=== PATIENT | female | born 1965 | race Two or more races ===

== ENCOUNTER 2019-06-07 20:08 | Emergency (ER) | payer MEDICAID ==
[~2019-06-07] VITALS: Ht 160 cm; Wt 74.4 kg
[2019-06-07] MEDS ORDERED: cefTRIAXone SOD 1,000 MG VL IM ONE (22:30)
[2019-06-07 23:05] VITALS: BP 128/60
== END 2019-06-07 23:30 | disposition home or self-care (01) ==
LOC: ER 20:10
DX: J02.9 Acute pharyngitis, unspecified (principal); R51 Headache; R53.81 Other malaise
CPT/HCPCS: 87070; 87880; 96372; 99283; J0696